=== PATIENT | male | born 1930 | race Caucasian/White ===

== ENCOUNTER 2016-06-18 04:10 | Inpatient (IN) | payer MEDICARE, MEDICAID ==
[2016-06-18] VITALS (7 sets, daily range): BP systolic 138–158; RESP 18–24; TEMP 98.2–98.6; Wt 87.9 kg
[2016-06-18] MEDS ORDERED: DUONEB INH ONE ×3 (04:22→05:13)
[2016-06-18] MEDS ORDERED: METHYLPRED SOD SUCC 125 MG/2 ML VIAL ONE (05:16)
[2016-06-18] MEDS ORDERED: ONDANSETRON 4 MG VIAL ONE (05:42)
[2016-06-18] MEDS ORDERED: MORPHINE 4 MG/ML SYR ONE (05:42)
[2016-06-18] MEDS ORDERED: ACETAMINOPHEN 325 MG TAB PO PRN (06:50)
[2016-06-18] MEDS: DUONEB INH SCH ×3 (06:50→23:30)
[2016-06-18] MEDS ORDERED: ONDANSETRON 4 MG VIAL IV PRN (06:50)
[2016-06-18] MEDS ORDERED: BISACODYL EC 5 MG TAB PO PRN (06:50)
[2016-06-18] MEDS ORDERED: SALINE FLUSH 10 ML FLUSH PRN (06:50)
[2016-06-18] MEDS ORDERED: ALU/MAG/SIM 30 ML UDC PO PRN (06:50)
[2016-06-18] MEDS ORDERED: TEMAZEPAM 7.5 MG CAP PO PRN (06:50)
[2016-06-18] MEDS ORDERED: GUAIFEN/DM 10 ML UDC PO PRN (06:50)
[2016-06-18] MEDS ORDERED: MAG HYDROX 30 ML UDC PO PRN (06:50)
[2016-06-18] MEDS ORDERED: BISACODYL 10 MG SUPP RECTAL PRN (06:50)
[2016-06-18] MEDS ORDERED: CEFTRIAXONE 1 GM VIAL ONE (07:03)
[2016-06-18] MEDS ORDERED: SODIUM CHLORIDE 0.9% 100 ML IV ONE (07:03)
[2016-06-18] MEDS ORDERED: SODIUM CHLORIDE 0.9% 250 ML IV ONE (07:57)
[2016-06-18] MEDS ORDERED: AZITHROMYCIN 500 MG VIAL IV ONE (07:57)
[2016-06-18] MEDS: SALINE FLUSH 10 ML FLUSH SCH ×2 (08:00→19:55)
[2016-06-18] MEDS: ENOXAPARIN 40 MG/0.4 ML SYR SUBQ SCH (10:45)
[2016-06-18] MEDS: GUAIFENESIN ER 600 MG TABCR PO SCH ×2 (10:45→20:18)
[2016-06-18] MEDS: NEB-ALBUTEROL 2.5 MG/3 ML INH PRN (15:05)
[2016-06-18] MEDS: METHYLPRED SOD SUCC 125 MG/2 ML VIAL IV SCH ×2 (17:11→23:29)
[2016-06-19] VITALS (10 sets, daily range): BP systolic 118–156; RESP 20–32; TEMP 97.6–98.3
[2016-06-19] MEDS: NEB-ALBUTEROL 2.5 MG/3 ML INH PRN (04:00)
[2016-06-19] MEDS: SODIUM CHLORIDE 0.9% FLUSH BAG 500 ML IV SCH (05:22)
[2016-06-19] MEDS: DUONEB INH SCH ×3 (07:00→19:11)
[2016-06-19] MEDS ORDERED: MISSING DOSE XX ONE (07:35)
[2016-06-19] MEDS: ENOXAPARIN 40 MG/0.4 ML SYR SUBQ SCH (07:54)
[2016-06-19] MEDS: GUAIFENESIN ER 600 MG TABCR PO SCH ×2 (07:55→20:05)
[2016-06-19] MEDS: SALINE FLUSH 10 ML FLUSH SCH ×2 (07:55→20:05)
[2016-06-19] MEDS: CEFTRIAXONE 1 GM in SODIUM CHLORIDE 0.9% 50 ML IV SCH (07:55)
[2016-06-19] MEDS: METHYLPRED SOD SUCC 125 MG/2 ML VIAL IV SCH (07:55)
[2016-06-19] MEDS ORDERED: AZITHROMYCIN 500 MG in SODIUM CHLORIDE 0.9% 250 ML IV SCH (09:00)
[2016-06-19] MEDS ORDERED: LORAZEPAM 0.5 MG TAB ONE (13:41)
[2016-06-19] MEDS: ISOSORBIDE MONO 30 MG TAB PO SCH (13:43)
[2016-06-19] MEDS: METOPROLOL XL 25 MG TAB PO SCH (13:43)
[2016-06-19] MEDS: Finasteride 5 MG TAB PO SCH (13:43)
[2016-06-19] MEDS: LORAZEPAM 0.5 MG TAB PO PRN ×2 (13:43→20:05)
[2016-06-19] MEDS: PAROXETINE HCL 10 MG TAB PO SCH (13:43)
[2016-06-19] MEDS: TAMSULOSIN 0.4 MG CAP PO SCH (13:43)
[2016-06-19] MEDS: SACCHA BOULARDII 250MG CAP PO SCH ×2 (15:59→20:05)
[2016-06-19] MEDS: METHYLPRED SOD SUCC 40 MG VIAL IV SCH (15:59)
[2016-06-19] MEDS: NEB-BROVANA 15 MCG/2 ML INH SCH (19:11)
[2016-06-19] MEDS: ROFLUMILAST 500 MCG TAB PO SCH (20:05)
[2016-06-19] MEDS: FAMOTIDINE 20 MG TAB PO SCH (20:05)
[2016-06-19] MEDS: BIMATOPROST 0.01% OP SOLN 2.5 ML EYE EACH SCH (20:06)
[2016-06-20] VITALS (9 sets, daily range): BP systolic 112–149; RESP 24–28; TEMP 97.8–98.4
[2016-06-20] MEDS: METHYLPRED SOD SUCC 40 MG VIAL IV SCH ×3 (00:20→16:30)
[2016-06-20] MEDS: DUONEB INH SCH ×5 (00:28→22:14)
[2016-06-20] MEDS: SODIUM CHLORIDE 0.9% FLUSH BAG 500 ML IV SCH (05:32)
[2016-06-20] MEDS: NEB-BROVANA 15 MCG/2 ML INH SCH ×2 (06:42→19:16)
[2016-06-20] MEDS: METOPROLOL XL 25 MG TAB PO SCH (08:51)
[2016-06-20] MEDS: Finasteride 5 MG TAB PO SCH (08:51)
[2016-06-20] MEDS: ASPIRIN EC 81 MG TAB PO SCH (08:51)
[2016-06-20] MEDS: ISOSORBIDE MONO 30 MG TAB PO SCH (08:51)
[2016-06-20] MEDS: SALINE FLUSH 10 ML FLUSH SCH ×2 (08:51→20:05)
[2016-06-20] MEDS: GUAIFENESIN ER 600 MG TABCR PO SCH ×2 (08:51→20:08)
[2016-06-20] MEDS: FAMOTIDINE 20 MG TAB PO SCH ×2 (08:51→20:08)
[2016-06-20] MEDS: SACCHA BOULARDII 250MG CAP PO SCH ×3 (08:51→20:08)
[2016-06-20] MEDS: TAMSULOSIN 0.4 MG CAP PO SCH (08:51)
[2016-06-20] MEDS: PAROXETINE HCL 10 MG TAB PO SCH (08:51)
[2016-06-20] MEDS: ENOXAPARIN 40 MG/0.4 ML SYR SUBQ SCH (08:52)
[2016-06-20] MEDS: CEFTRIAXONE 1 GM in SODIUM CHLORIDE 0.9% 50 ML IV SCH (08:53)
[2016-06-20] MEDS: NEB-ALBUTEROL 2.5 MG/3 ML INH PRN (16:24)
[2016-06-20] MEDS: LORAZEPAM 0.5 MG TAB PO PRN (16:30)
[2016-06-20] MEDS: AZITHROMYCIN 250 MG TAB PO SCH (19:08)
[2016-06-20] MEDS: NEB-NACL 3% 4 ML NEBU INH SCH ×2 (19:16→22:14)
[2016-06-20] MEDS: NEB-BUDESONIDE 0.5 MG INH SCH (19:16)
[2016-06-20] MEDS ORDERED: Furosemide 100 MG/10 ML VIAL IV ONE (19:40)
[2016-06-20] MEDS: OXYMETAZOLINE 0.05% NOSE SPRAY NARE EACH SCH (20:07)
[2016-06-20] MEDS: ROFLUMILAST 500 MCG TAB PO SCH (20:08)
[2016-06-20] MEDS: BIMATOPROST 0.01% OP SOLN 2.5 ML EYE EACH SCH (21:56)
[2016-06-21] MEDS: METHYLPRED SOD SUCC 40 MG VIAL IV SCH ×3 (00:10→16:24)
[2016-06-21] MEDS: NEB-NACL 3% 4 ML NEBU INH SCH ×7 (02:53→23:47)
[2016-06-21] MEDS: DUONEB INH SCH ×6 (02:53→23:47)
[2016-06-21 03:30] VITALS: BP_SYST 137; RESP 24; TEMP 97.6
[2016-06-21] MEDS: SODIUM CHLORIDE 0.9% FLUSH BAG 500 ML IV SCH (06:13)
[2016-06-21] MEDS: NEB-BUDESONIDE 0.5 MG INH SCH ×2 (07:29→18:55)
[2016-06-21] MEDS: NEB-BROVANA 15 MCG/2 ML INH SCH ×2 (07:29→18:55)
[2016-06-21 07:33] VITALS: BP_SYST 153; RESP 24; TEMP 97.6
[2016-06-21] MEDS: SALINE FLUSH 10 ML FLUSH SCH ×2 (08:01→21:09)
[2016-06-21] MEDS: OXYMETAZOLINE 0.05% NOSE SPRAY NARE EACH SCH ×2 (08:02→21:10)
[2016-06-21] MEDS: CEFTRIAXONE 1 GM in SODIUM CHLORIDE 0.9% 50 ML IV SCH (08:02)
[2016-06-21] MEDS: GUAIFENESIN ER 600 MG TABCR PO SCH ×2 (08:03→21:09)
[2016-06-21] MEDS: ENOXAPARIN 40 MG/0.4 ML SYR SUBQ SCH (08:03)
[2016-06-21] MEDS: Finasteride 5 MG TAB PO SCH (08:03)
[2016-06-21] MEDS: ASPIRIN EC 81 MG TAB PO SCH (08:03)
[2016-06-21] MEDS: FAMOTIDINE 20 MG TAB PO SCH ×2 (08:03→21:09)
[2016-06-21] MEDS: METOPROLOL XL 25 MG TAB PO SCH (08:03)
[2016-06-21] MEDS: TAMSULOSIN 0.4 MG CAP PO SCH (08:04)
[2016-06-21] MEDS: AZITHROMYCIN 250 MG TAB PO SCH (08:04)
[2016-06-21] MEDS: SACCHA BOULARDII 250MG CAP PO SCH ×3 (08:04→21:09)
[2016-06-21] MEDS: PAROXETINE HCL 10 MG TAB PO SCH (08:26)
[2016-06-21] MEDS: ISOSORBIDE MONO 30 MG TAB PO SCH (08:26)
[2016-06-21] MEDS ORDERED: Furosemide 100 MG/10 ML VIAL IV ONE (10:00)
[2016-06-21] MEDS ORDERED: Furosemide 40 MG/4 ML VIAL ONE (10:03)
[2016-06-21] MEDS: LORAZEPAM 0.5 MG TAB PO PRN ×2 (10:06→16:44)
[2016-06-21 11:15] VITALS: RESP 24
[2016-06-21 11:45] VITALS: BP_SYST 148; RESP 24; TEMP 97.6
[2016-06-21] MEDS: NEB-ALBUTEROL 2.5 MG/3 ML INH PRN (11:58)
[2016-06-21] MEDS: TUSSIONEX SUSP UDC PO SCH ×2 (15:24→21:09)
[2016-06-21] MEDS: BENZONATATE 100 MG CAP PO SCH ×2 (17:20→21:09)
[2016-06-21 20:26] VITALS: BP_SYST 123; RESP 28; TEMP 98.3
[2016-06-21] MEDS: ROFLUMILAST 500 MCG TAB PO SCH (21:09)
[2016-06-21] MEDS: BIMATOPROST 0.01% OP SOLN 2.5 ML EYE EACH SCH (21:16)
[2016-06-21 23:43] VITALS: BP_SYST 112; RESP 24; TEMP 98.4
[2016-06-22] MEDS: METHYLPRED SOD SUCC 40 MG VIAL IV SCH ×4 (00:30→23:07)
[2016-06-22] MEDS: DUONEB INH SCH ×6 (02:46→22:33)
[2016-06-22] MEDS: NEB-NACL 3% 4 ML NEBU INH SCH ×7 (02:46→22:33)
[2016-06-22 03:30] VITALS: BP_SYST 117; RESP 22; TEMP 98.4
[2016-06-22] MEDS: SODIUM CHLORIDE 0.9% FLUSH BAG 500 ML IV SCH (06:33)
[2016-06-22] MEDS: NEB-BROVANA 15 MCG/2 ML INH SCH ×2 (06:53→16:40)
[2016-06-22] MEDS: NEB-BUDESONIDE 0.5 MG INH SCH ×2 (06:53→16:40)
[2016-06-22 08:07] VITALS: BP_SYST 131; RESP 20; TEMP 98.1
[2016-06-22] MEDS: OXYMETAZOLINE 0.05% NOSE SPRAY NARE EACH SCH ×2 (08:45→20:40)
[2016-06-22] MEDS: ENOXAPARIN 40 MG/0.4 ML SYR SUBQ SCH (08:45)
[2016-06-22] MEDS: SALINE FLUSH 10 ML FLUSH SCH ×2 (08:45→20:41)
[2016-06-22] MEDS: TAMSULOSIN 0.4 MG CAP PO SCH (08:46)
[2016-06-22] MEDS: Finasteride 5 MG TAB PO SCH (08:46)
[2016-06-22] MEDS: BENZONATATE 100 MG CAP PO SCH ×3 (08:46→20:41)
[2016-06-22] MEDS: PAROXETINE HCL 10 MG TAB PO SCH (08:46)
[2016-06-22] MEDS: ASPIRIN EC 81 MG TAB PO SCH (08:46)
[2016-06-22] MEDS: AZITHROMYCIN 250 MG TAB PO SCH (08:46)
[2016-06-22] MEDS: METOPROLOL XL 25 MG TAB PO SCH (08:46)
[2016-06-22] MEDS: ISOSORBIDE MONO 30 MG TAB PO SCH (08:47)
[2016-06-22] MEDS: GUAIFENESIN ER 600 MG TABCR PO SCH ×2 (08:47→20:41)
[2016-06-22] MEDS: SACCHA BOULARDII 250MG CAP PO SCH ×3 (08:47→20:41)
[2016-06-22] MEDS: CEFTRIAXONE 1 GM in SODIUM CHLORIDE 0.9% 50 ML IV SCH (08:55)
[2016-06-22] MEDS: FAMOTIDINE 20 MG TAB PO SCH ×2 (08:55→20:41)
[2016-06-22] MEDS: TUSSIONEX SUSP UDC PO SCH ×2 (08:57→20:40)
[2016-06-22 12:15] VITALS: BP_SYST 107; RESP 20; TEMP 98.1
[2016-06-22 15:25] VITALS: BP_SYST 124; RESP 20; TEMP 97.6
[2016-06-22 19:27] VITALS: BP_SYST 153; RESP 20; TEMP 97.4
[2016-06-22] MEDS: BIMATOPROST 0.01% OP SOLN 2.5 ML EYE EACH SCH (20:40)
[2016-06-22] MEDS: ROFLUMILAST 500 MCG TAB PO SCH (20:41)
[2016-06-22 23:48] VITALS: BP_SYST 128; RESP 20; TEMP 98.1
[2016-06-23] MEDS: NEB-NACL 3% 4 ML NEBU INH SCH ×6 (02:43→22:46)
[2016-06-23] MEDS: DUONEB INH SCH ×6 (02:43→22:46)
[2016-06-23 04:04] VITALS: BP_SYST 128; RESP 20; TEMP 98
[2016-06-23] MEDS: SODIUM CHLORIDE 0.9% FLUSH BAG 500 ML IV SCH (05:19)
[2016-06-23] MEDS: NEB-BROVANA 15 MCG/2 ML INH SCH ×2 (05:20→18:58)
[2016-06-23] MEDS: NEB-BUDESONIDE 0.5 MG INH SCH ×2 (05:21→18:58)
[2016-06-23 07:18] VITALS: BP_SYST 151; RESP 20; TEMP 98.1
[2016-06-23] MEDS: SALINE FLUSH 10 ML FLUSH SCH ×2 (08:00→21:09)
[2016-06-23] MEDS: OXYMETAZOLINE 0.05% NOSE SPRAY NARE EACH SCH (08:42)
[2016-06-23] MEDS: METHYLPRED SOD SUCC 40 MG VIAL IV SCH ×3 (08:44→23:57)
[2016-06-23] MEDS: TUSSIONEX SUSP UDC PO SCH ×2 (08:45→21:09)
[2016-06-23] MEDS: CEFTRIAXONE 1 GM in SODIUM CHLORIDE 0.9% 50 ML IV SCH (08:46)
[2016-06-23] MEDS: FAMOTIDINE 20 MG TAB PO SCH ×2 (08:48→21:09)
[2016-06-23] MEDS: BENZONATATE 100 MG CAP PO SCH ×3 (08:48→21:09)
[2016-06-23] MEDS: PAROXETINE HCL 10 MG TAB PO SCH (08:48)
[2016-06-23] MEDS: SACCHA BOULARDII 250MG CAP PO SCH ×3 (08:48→21:10)
[2016-06-23] MEDS: GUAIFENESIN ER 600 MG TABCR PO SCH ×2 (08:48→21:10)
[2016-06-23] MEDS: METOPROLOL XL 25 MG TAB PO SCH (08:48)
[2016-06-23] MEDS: ISOSORBIDE MONO 30 MG TAB PO SCH (08:48)
[2016-06-23] MEDS: TAMSULOSIN 0.4 MG CAP PO SCH (08:48)
[2016-06-23] MEDS: ASPIRIN EC 81 MG TAB PO SCH (08:48)
[2016-06-23] MEDS: AZITHROMYCIN 250 MG TAB PO SCH (08:48)
[2016-06-23] MEDS: Finasteride 5 MG TAB PO SCH (08:48)
[2016-06-23] MEDS: ENOXAPARIN 40 MG/0.4 ML SYR SUBQ SCH (08:50)
[2016-06-23 11:53] VITALS: BP_SYST 130; RESP 22; TEMP 98.4
[2016-06-23 16:20] VITALS: BP_SYST 157; RESP 22; TEMP 98.1
[2016-06-23 19:40] VITALS: BP_SYST 129; RESP 20; TEMP 98.5
[2016-06-23] MEDS: ROFLUMILAST 500 MCG TAB PO SCH (21:09)
[2016-06-23] MEDS: BIMATOPROST 0.01% OP SOLN 2.5 ML EYE EACH SCH (21:09)
[2016-06-23 22:57] VITALS: BP_SYST 156; RESP 22
[2016-06-24] MEDS: DUONEB INH SCH ×6 (02:38→22:40)
[2016-06-24] MEDS: NEB-NACL 3% 4 ML NEBU INH SCH ×6 (03:00→22:40)
[2016-06-24 05:05] VITALS: BP_SYST 188; RESP 24
[2016-06-24] MEDS: SODIUM CHLORIDE 0.9% FLUSH BAG 500 ML IV SCH (06:01)
[2016-06-24 07:23] VITALS: BP_SYST 179; RESP 24; TEMP 97.6
[2016-06-24] MEDS: NEB-BUDESONIDE 0.5 MG INH SCH ×2 (07:37→18:39)
[2016-06-24] MEDS: NEB-BROVANA 15 MCG/2 ML INH SCH ×2 (07:37→18:39)
[2016-06-24] MEDS: METHYLPRED SOD SUCC 40 MG VIAL IV SCH (08:57)
[2016-06-24] MEDS: SALINE FLUSH 10 ML FLUSH SCH ×2 (08:57→20:10)
[2016-06-24] MEDS: ENOXAPARIN 40 MG/0.4 ML SYR SUBQ SCH (08:59)
[2016-06-24] MEDS: TUSSIONEX SUSP UDC PO SCH ×2 (09:00→20:10)
[2016-06-24] MEDS: CEFTRIAXONE 1 GM in SODIUM CHLORIDE 0.9% 50 ML IV SCH (09:00)
[2016-06-24] MEDS: ASPIRIN EC 81 MG TAB PO SCH (09:00)
[2016-06-24] MEDS: METOPROLOL XL 25 MG TAB PO SCH (09:01)
[2016-06-24] MEDS: Finasteride 5 MG TAB PO SCH (09:01)
[2016-06-24] MEDS: FAMOTIDINE 20 MG TAB PO SCH ×2 (09:01→20:10)
[2016-06-24] MEDS: AZITHROMYCIN 250 MG TAB PO SCH (09:01)
[2016-06-24] MEDS: PAROXETINE HCL 10 MG TAB PO SCH (09:01)
[2016-06-24] MEDS: GUAIFENESIN ER 600 MG TABCR PO SCH ×2 (09:01→20:10)
[2016-06-24] MEDS: BENZONATATE 100 MG CAP PO SCH ×3 (09:01→20:10)
[2016-06-24] MEDS: SACCHA BOULARDII 250MG CAP PO SCH ×3 (09:01→20:10)
[2016-06-24] MEDS: TAMSULOSIN 0.4 MG CAP PO SCH (09:01)
[2016-06-24] MEDS: ISOSORBIDE MONO 30 MG TAB PO SCH (09:01)
[2016-06-24 11:04] VITALS: BP_SYST 133; TEMP 98.1
[2016-06-24] MEDS: PREDNISONE 20 MG TAB PO SCH ×2 (12:25→17:34)
[2016-06-24 15:43] VITALS: BP_SYST 131; RESP 20; TEMP 98.4
[2016-06-24] MEDS: Amoxicillin Tr 500 MG CAP PO SCH ×2 (17:34→20:10)
[2016-06-24 19:29] VITALS: BP_SYST 149; RESP 20; TEMP 97.5
[2016-06-24] MEDS: ROFLUMILAST 500 MCG TAB PO SCH (20:10)
[2016-06-24] MEDS: BIMATOPROST 0.01% OP SOLN 2.5 ML EYE EACH SCH (20:10)
[2016-06-24 23:09] VITALS: BP_SYST 146; RESP 18; TEMP 98.1
[2016-06-25] MEDS: NEB-NACL 3% 4 ML NEBU INH SCH ×6 (02:50→22:58)
[2016-06-25] MEDS: DUONEB INH SCH ×6 (02:51→22:58)
[2016-06-25 03:05] VITALS: BP_SYST 165; RESP 20; TEMP 97.6
[2016-06-25] MEDS: NEB-BROVANA 15 MCG/2 ML INH SCH ×2 (05:18→17:17)
[2016-06-25] MEDS: NEB-BUDESONIDE 0.5 MG INH SCH ×2 (05:18→17:18)
[2016-06-25] MEDS: SODIUM CHLORIDE 0.9% FLUSH BAG 500 ML IV SCH (05:26)
[2016-06-25 07:12] VITALS: BP_SYST 142; RESP 20; TEMP 97.6
[2016-06-25] MEDS: TUSSIONEX SUSP UDC PO SCH ×2 (08:57→19:58)
[2016-06-25] MEDS: BENZONATATE 100 MG CAP PO SCH ×3 (08:58→19:57)
[2016-06-25] MEDS: AZITHROMYCIN 250 MG TAB PO SCH (08:58)
[2016-06-25] MEDS: FAMOTIDINE 20 MG TAB PO SCH ×2 (08:58→19:58)
[2016-06-25] MEDS: ASPIRIN EC 81 MG TAB PO SCH (08:58)
[2016-06-25] MEDS: SACCHA BOULARDII 250MG CAP PO SCH ×3 (08:58→19:57)
[2016-06-25] MEDS: Amoxicillin Tr 500 MG CAP PO SCH ×3 (08:58→19:58)
[2016-06-25] MEDS: TAMSULOSIN 0.4 MG CAP PO SCH (08:58)
[2016-06-25] MEDS: Finasteride 5 MG TAB PO SCH (08:58)
[2016-06-25] MEDS: PAROXETINE HCL 10 MG TAB PO SCH (08:58)
[2016-06-25] MEDS: PREDNISONE 20 MG TAB PO SCH ×2 (08:58→12:11)
[2016-06-25] MEDS: METOPROLOL XL 25 MG TAB PO SCH (08:58)
[2016-06-25] MEDS: GUAIFENESIN ER 600 MG TABCR PO SCH ×2 (08:58→19:57)
[2016-06-25] MEDS: SALINE FLUSH 10 ML FLUSH SCH ×2 (08:59→19:57)
[2016-06-25] MEDS: ISOSORBIDE MONO 30 MG TAB PO SCH (08:59)
[2016-06-25] MEDS: ENOXAPARIN 40 MG/0.4 ML SYR SUBQ SCH (08:59)
[2016-06-25 11:13] VITALS: BP_SYST 146; RESP 18; TEMP 97.2
[2016-06-25 15:20] VITALS: BP_SYST 136; RESP 18; TEMP 98
[2016-06-25] MEDS ORDERED: PREDNISONE 20 MG TAB PO SCH (17:00)
[2016-06-25 19:25] VITALS: BP_SYST 148; RESP 16; TEMP 98.8
[2016-06-25] MEDS ORDERED: MISSING DOSE XX ONE (19:55)
[2016-06-25] MEDS: ROFLUMILAST 500 MCG TAB PO SCH (19:58)
[2016-06-25] MEDS: BIMATOPROST 0.01% OP SOLN 2.5 ML EYE EACH SCH (21:23)
[2016-06-25 23:32] VITALS: BP_SYST 163; RESP 16; TEMP 98.8
[2016-06-26] MEDS: NEB-NACL 3% 4 ML NEBU INH SCH ×6 (02:58→23:55)
[2016-06-26] MEDS: DUONEB INH SCH ×6 (02:58→23:54)
[2016-06-26 03:50] VITALS: BP_SYST 169; RESP 18; TEMP 98.4
[2016-06-26] MEDS: NEB-BROVANA 15 MCG/2 ML INH SCH ×2 (05:25→18:51)
[2016-06-26] MEDS: NEB-BUDESONIDE 0.5 MG INH SCH ×2 (05:25→18:51)
[2016-06-26] MEDS: SODIUM CHLORIDE 0.9% FLUSH BAG 500 ML IV SCH (05:50)
[2016-06-26 07:14] VITALS: BP_SYST 124; RESP 16; TEMP 98.3
[2016-06-26] MEDS: SALINE FLUSH 10 ML FLUSH SCH ×2 (08:36→21:32)
[2016-06-26] MEDS: Amoxicillin Tr 500 MG CAP PO SCH ×3 (08:36→21:28)
[2016-06-26] MEDS: FAMOTIDINE 20 MG TAB PO SCH ×2 (08:37→21:28)
[2016-06-26] MEDS: PAROXETINE HCL 10 MG TAB PO SCH (08:37)
[2016-06-26] MEDS: BENZONATATE 100 MG CAP PO SCH ×3 (08:37→21:28)
[2016-06-26] MEDS: GUAIFENESIN ER 600 MG TABCR PO SCH ×2 (08:37→21:29)
[2016-06-26] MEDS: ASPIRIN EC 81 MG TAB PO SCH (08:37)
[2016-06-26] MEDS: SACCHA BOULARDII 250MG CAP PO SCH ×3 (08:37→21:28)
[2016-06-26] MEDS: Finasteride 5 MG TAB PO SCH (08:37)
[2016-06-26] MEDS: METOPROLOL XL 25 MG TAB PO SCH (08:37)
[2016-06-26] MEDS: TAMSULOSIN 0.4 MG CAP PO SCH (08:37)
[2016-06-26] MEDS: ISOSORBIDE MONO 30 MG TAB PO SCH (08:37)
[2016-06-26] MEDS: TUSSIONEX SUSP UDC PO SCH ×2 (08:38→21:31)
[2016-06-26] MEDS: ENOXAPARIN 40 MG/0.4 ML SYR SUBQ SCH (08:38)
[2016-06-26] MEDS: PREDNISONE 50 MG TAB PO SCH (08:44)
[2016-06-26 11:01] VITALS: BP_SYST 158; RESP 16; TEMP 98.1
[2016-06-26 15:23] VITALS: BP_SYST 147; RESP 22; TEMP 97.5
[2016-06-26] MEDS ORDERED: MISSING DOSE XX ONE ×2 (16:40→20:55)
[2016-06-26 19:37] VITALS: BP_SYST 147; RESP 20; TEMP 98.1
[2016-06-26] MEDS: BIMATOPROST 0.01% OP SOLN 2.5 ML EYE EACH SCH (21:28)
[2016-06-26] MEDS: ROFLUMILAST 500 MCG TAB PO SCH (21:29)
[2016-06-26 23:18] VITALS: BP_SYST 147; RESP 20; TEMP 97.9
[2016-06-27] VITALS (8 sets, daily range): BP systolic 119–162; RESP 16–26; TEMP 98.2–98.7
[2016-06-27] MEDS: DUONEB INH SCH ×6 (03:21→23:50)
[2016-06-27] MEDS: NEB-NACL 3% 4 ML NEBU INH SCH ×6 (03:21→23:50)
[2016-06-27] MEDS: SODIUM CHLORIDE 0.9% FLUSH BAG 500 ML IV SCH (06:00)
[2016-06-27] MEDS: NEB-BUDESONIDE 0.5 MG INH SCH ×2 (06:48→19:53)
[2016-06-27] MEDS: NEB-BROVANA 15 MCG/2 ML INH SCH ×2 (06:48→19:52)
[2016-06-27] MEDS: SALINE FLUSH 10 ML FLUSH SCH ×2 (08:58→20:29)
[2016-06-27] MEDS: TUSSIONEX SUSP UDC PO SCH ×2 (08:58→20:28)
[2016-06-27] MEDS: FAMOTIDINE 20 MG TAB PO SCH ×2 (08:59→20:29)
[2016-06-27] MEDS: Amoxicillin Tr 500 MG CAP PO SCH ×3 (08:59→20:29)
[2016-06-27] MEDS: GUAIFENESIN ER 600 MG TABCR PO SCH ×2 (08:59→20:29)
[2016-06-27] MEDS: BENZONATATE 100 MG CAP PO SCH ×3 (08:59→20:29)
[2016-06-27] MEDS: SACCHA BOULARDII 250MG CAP PO SCH ×3 (08:59→20:29)
[2016-06-27] MEDS ORDERED: MISSING DOSE XX ONE (09:10)
[2016-06-27] MEDS: ASPIRIN EC 81 MG TAB PO SCH (09:32)
[2016-06-27] MEDS: PREDNISONE 50 MG TAB PO SCH (09:32)
[2016-06-27] MEDS: METOPROLOL XL 25 MG TAB PO SCH (09:32)
[2016-06-27] MEDS: PAROXETINE HCL 10 MG TAB PO SCH (09:32)
[2016-06-27] MEDS: TAMSULOSIN 0.4 MG CAP PO SCH (09:32)
[2016-06-27] MEDS: ISOSORBIDE MONO 30 MG TAB PO SCH (09:32)
[2016-06-27] MEDS: Finasteride 5 MG TAB PO SCH (09:32)
[2016-06-27] MEDS: ENOXAPARIN 40 MG/0.4 ML SYR SUBQ SCH (09:32)
[2016-06-27] MEDS: BIMATOPROST 0.01% OP SOLN 2.5 ML EYE EACH SCH (20:28)
[2016-06-27] MEDS: ROFLUMILAST 500 MCG TAB PO SCH (20:29)
[2016-06-28] MEDS: SODIUM CHLORIDE 0.9% FLUSH BAG 500 ML IV SCH (01:39)
[2016-06-28] MEDS: DUONEB INH SCH ×6 (02:42→23:51)
[2016-06-28] MEDS: NEB-NACL 3% 4 ML NEBU INH SCH ×6 (02:42→23:51)
[2016-06-28 03:00] VITALS: BP_SYST 153; RESP 20; TEMP 98.2
[2016-06-28 03:01] VITALS: RESP 20
[2016-06-28] MEDS: NEB-BROVANA 15 MCG/2 ML INH SCH ×2 (06:34→17:03)
[2016-06-28] MEDS: NEB-BUDESONIDE 0.5 MG INH SCH ×2 (06:34→17:03)
[2016-06-28 07:19] VITALS: BP_SYST 149; RESP 18; TEMP 98.6
[2016-06-28] MEDS: Finasteride 5 MG TAB PO SCH (08:16)
[2016-06-28] MEDS: BENZONATATE 100 MG CAP PO SCH ×3 (08:16→20:22)
[2016-06-28] MEDS: ENOXAPARIN 40 MG/0.4 ML SYR SUBQ SCH (08:16)
[2016-06-28] MEDS: TUSSIONEX SUSP UDC PO SCH ×2 (08:16→20:25)
[2016-06-28] MEDS: SALINE FLUSH 10 ML FLUSH SCH ×2 (08:16→20:23)
[2016-06-28] MEDS: FAMOTIDINE 20 MG TAB PO SCH ×2 (08:17→20:25)
[2016-06-28] MEDS: PREDNISONE 50 MG TAB PO SCH (08:17)
[2016-06-28] MEDS: METOPROLOL XL 25 MG TAB PO SCH (08:17)
[2016-06-28] MEDS: ISOSORBIDE MONO 30 MG TAB PO SCH (08:18)
[2016-06-28] MEDS: SACCHA BOULARDII 250MG CAP PO SCH ×3 (08:18→20:22)
[2016-06-28] MEDS: TAMSULOSIN 0.4 MG CAP PO SCH (08:18)
[2016-06-28] MEDS: PAROXETINE HCL 10 MG TAB PO SCH (08:18)
[2016-06-28] MEDS: GUAIFENESIN ER 600 MG TABCR PO SCH ×2 (08:18→20:22)
[2016-06-28] MEDS: ASPIRIN EC 81 MG TAB PO SCH (08:18)
[2016-06-28] MEDS: Amoxicillin Tr 500 MG CAP PO SCH ×3 (08:18→20:22)
[2016-06-28 11:23] VITALS: BP_SYST 129; RESP 18; TEMP 98.6
[2016-06-28 15:01] VITALS: BP_SYST 122; RESP 18; TEMP 98.6
[2016-06-28 19:56] VITALS: BP_SYST 116; RESP 18; TEMP 98.6
[2016-06-28] MEDS ORDERED: MISSING DOSE XX ONE (20:20)
[2016-06-28] MEDS: BIMATOPROST 0.01% OP SOLN 2.5 ML EYE EACH SCH (20:22)
[2016-06-28] MEDS: ROFLUMILAST 500 MCG TAB PO SCH (20:22)
[2016-06-29] VITALS (11 sets, daily range): BP systolic 104–160; RESP 16–20; TEMP 98–98.7
[2016-06-29] MEDS: NEB-NACL 3% 4 ML NEBU INH SCH ×6 (02:56→23:02)
[2016-06-29] MEDS: DUONEB INH SCH ×6 (02:58→23:01)
[2016-06-29] MEDS: SODIUM CHLORIDE 0.9% FLUSH BAG 500 ML IV SCH (04:45)
[2016-06-29] MEDS: NEB-BUDESONIDE 0.5 MG INH SCH ×2 (06:50→19:54)
[2016-06-29] MEDS: NEB-BROVANA 15 MCG/2 ML INH SCH ×2 (06:50→19:54)
[2016-06-29] MEDS: GUAIFENESIN ER 600 MG TABCR PO SCH ×2 (09:45→20:27)
[2016-06-29] MEDS: SALINE FLUSH 10 ML FLUSH SCH ×2 (09:45→20:25)
[2016-06-29] MEDS: ISOSORBIDE MONO 30 MG TAB PO SCH (09:45)
[2016-06-29] MEDS: TUSSIONEX SUSP UDC PO SCH ×2 (09:45→20:29)
[2016-06-29] MEDS: BENZONATATE 100 MG CAP PO SCH ×3 (09:46→20:26)
[2016-06-29] MEDS: PAROXETINE HCL 10 MG TAB PO SCH (09:46)
[2016-06-29] MEDS: METOPROLOL XL 25 MG TAB PO SCH (09:47)
[2016-06-29] MEDS: ENOXAPARIN 40 MG/0.4 ML SYR SUBQ SCH (09:47)
[2016-06-29] MEDS: ASPIRIN EC 81 MG TAB PO SCH (09:47)
[2016-06-29] MEDS: PREDNISONE 50 MG TAB PO SCH (09:47)
[2016-06-29] MEDS: Amoxicillin Tr 500 MG CAP PO SCH ×3 (09:47→20:26)
[2016-06-29] MEDS: Finasteride 5 MG TAB PO SCH (09:47)
[2016-06-29] MEDS: SACCHA BOULARDII 250MG CAP PO SCH ×3 (09:47→20:26)
[2016-06-29] MEDS: TAMSULOSIN 0.4 MG CAP PO SCH (09:47)
[2016-06-29] MEDS: FAMOTIDINE 20 MG TAB PO SCH ×2 (09:47→20:26)
[2016-06-29] MEDS: BIMATOPROST 0.01% OP SOLN 2.5 ML EYE EACH SCH (20:25)
[2016-06-29] MEDS: ROFLUMILAST 500 MCG TAB PO SCH (20:25)
[2016-06-30] MEDS: DUONEB INH SCH ×5 (02:20→19:58)
[2016-06-30] MEDS: NEB-NACL 3% 4 ML NEBU INH SCH ×5 (02:20→19:58)
[2016-06-30 02:59] VITALS: BP_SYST 133; RESP 20; TEMP 97.8
[2016-06-30] MEDS: SODIUM CHLORIDE 0.9% FLUSH BAG 500 ML IV SCH (05:12)
[2016-06-30] MEDS: NEB-BUDESONIDE 0.5 MG INH SCH ×2 (06:16→19:58)
[2016-06-30] MEDS: NEB-BROVANA 15 MCG/2 ML INH SCH ×2 (06:16→19:58)
[2016-06-30 07:01] VITALS: BP_SYST 182; RESP 20; TEMP 98.4
[2016-06-30] MEDS: TUSSIONEX SUSP UDC PO SCH (09:31)
[2016-06-30] MEDS: ENOXAPARIN 40 MG/0.4 ML SYR SUBQ SCH (09:31)
[2016-06-30] MEDS: SACCHA BOULARDII 250MG CAP PO SCH ×2 (09:31→15:58)
[2016-06-30] MEDS: PREDNISONE 50 MG TAB PO SCH (09:31)
[2016-06-30] MEDS: METOPROLOL XL 25 MG TAB PO SCH (09:31)
[2016-06-30] MEDS: Amoxicillin Tr 500 MG CAP PO SCH ×3 (09:32→19:07)
[2016-06-30] MEDS: BENZONATATE 100 MG CAP PO SCH ×2 (09:32→15:58)
[2016-06-30] MEDS: FAMOTIDINE 20 MG TAB PO SCH (09:32)
[2016-06-30] MEDS: TAMSULOSIN 0.4 MG CAP PO SCH (09:32)
[2016-06-30] MEDS: ISOSORBIDE MONO 30 MG TAB PO SCH (09:32)
[2016-06-30] MEDS: GUAIFENESIN ER 600 MG TABCR PO SCH (09:32)
[2016-06-30] MEDS: PAROXETINE HCL 10 MG TAB PO SCH (09:32)
[2016-06-30] MEDS: ASPIRIN EC 81 MG TAB PO SCH (09:32)
[2016-06-30] MEDS: Finasteride 5 MG TAB PO SCH (09:32)
[2016-06-30] MEDS: SALINE FLUSH 10 ML FLUSH SCH (09:40)
[2016-06-30 11:30] VITALS: BP_SYST 129; RESP 20; TEMP 97.5
[2016-06-30 15:30] VITALS: BP_SYST 152; RESP 20; TEMP 98.1
== END 2016-06-30 19:10 | disposition home health service (06) | DRG 190 ==
LOC: ENRESERVDT → ENRESERVTM → ER 04:10 → EMR 06:46 → ENPENDDIS 06:46 → PCU2 09:23 → 3NT 06-29 16:44
PROVIDERS: ADMIT Internal Medicine; ATTEND Internal Medicine
DX: J44.0 Chronic obstructive pulmonary disease with (acute) lower respiratory infection (principal); J96.22 Acute and chronic respiratory failure with hypercapnia; J96.21 Acute and chronic respiratory failure with hypoxia; J15.9 Unspecified bacterial pneumonia; I50.30 Unspecified diastolic (congestive) heart failure; C61 Malignant neoplasm of prostate; J44.1 Chronic obstructive pulmonary disease with (acute) exacerbation; I10 Essential (primary) hypertension; F41.9 Anxiety disorder, unspecified; K21.9 Gastro-esophageal reflux disease without esophagitis; N40.0 Benign prostatic hyperplasia without lower urinary tract symptoms; E55.9 Vitamin D deficiency, unspecified; Z66 Do not resuscitate; F17.211 Nicotine dependence, cigarettes, in remission; Z79.51 Long term (current) use of inhaled steroids; Z79.82 Long term (current) use of aspirin
CPT/HCPCS: 36600; 71010; 71250; 80048; 82803; 83735; 85025; 87071; 93005; 94640; 94660; 94667; 94668; 94762; 94799; 96365; 96367; 96368; 96375; 99223; 99232; 99233; 99239

== ENCOUNTER 2016-07-25 18:53 | Inpatient (IN) | payer MEDICARE, MEDICAID ==
[~2016-07-25] VITALS: Ht 170.2 cm; Wt 86.6 kg
[2016-07-25] MEDS ORDERED: METHYLPRED SOD SUCC 125 MG/2 ML VIAL ONE (22:12)
[2016-07-25] MEDS ORDERED: DUONEB INH ONE ×3 (22:15)
[2016-07-26] VITALS (7 sets, daily range): BP systolic 122–151; RESP 18–22; TEMP 97.3–98.2; Ht 170.2 cm; Wt 86.6 kg
[2016-07-26] MEDS ORDERED: ED METRONIDAZOLE IV 100 ML IV ONE (02:22)
[2016-07-26] MEDS ORDERED: ONDANSETRON 4 MG VIAL IV PRN (04:30)
[2016-07-26] MEDS ORDERED: SALINE FLUSH 10 ML FLUSH PRN (04:30)
[2016-07-26] MEDS ORDERED: ACETAMINOPHEN 325 MG TAB PO PRN (04:30)
[2016-07-26] MEDS ORDERED: BISACODYL EC 5 MG TAB PO PRN (04:30)
[2016-07-26] MEDS ORDERED: DUONEB INH SCH (04:30)
[2016-07-26] MEDS ORDERED: MAG HYDROX 30 ML UDC PO PRN (04:30)
[2016-07-26] MEDS ORDERED: ALU/MAG/SIM 30 ML UDC PO PRN (04:30)
[2016-07-26] MEDS ORDERED: BISACODYL 10 MG SUPP RECTAL PRN (04:30)
[2016-07-26] MEDS ORDERED: METRONIDAZOLE 500MG/100ML 100 ML IV SCH (06:00)
[2016-07-26] MEDS: SODIUM CHLORIDE 0.9% FLUSH BAG 500 ML IV SCH (07:57)
[2016-07-26] MEDS: SALINE FLUSH 10 ML FLUSH SCH ×2 (07:57→21:25)
[2016-07-26] MEDS: LEVOFLOXACIN 750 MG/150 ML 150 ML IV SCH (08:13)
[2016-07-26] MEDS: DUONEB INH SCH ×3 (12:00→18:59)
[2016-07-26] MEDS: PAROXETINE HCL 10 MG TAB PO SCH (12:37)
[2016-07-26] MEDS: Finasteride 5 MG TAB PO SCH (12:37)
[2016-07-26] MEDS: ASPIRIN EC 81 MG TAB PO SCH (12:37)
[2016-07-26] MEDS: VANCOMYCIN SUSP 250 MG/5 ML UDC PO SCH ×3 (12:38→21:24)
[2016-07-26] MEDS ORDERED: CIPROFLOXACIN HCL EYE EACH SCH (21:00)
[2016-07-26] MEDS: SACCHA BOULARDII 250MG CAP PO SCH (21:24)
[2016-07-26] MEDS: FAMOTIDINE 20 MG TAB PO SCH (21:24)
[2016-07-26] MEDS: BIMATOPROST 0.01% OP SOLN 2.5 ML EYE EACH SCH (21:25)
[2016-07-27 04:02] VITALS: BP_SYST 130; RESP 20; TEMP 96.4
[2016-07-27] MEDS: DUONEB INH SCH ×5 (06:11→22:41)
[2016-07-27] MEDS: SODIUM CHLORIDE 0.9% FLUSH BAG 500 ML IV SCH (06:23)
[2016-07-27 07:55] VITALS: BP_SYST 142; RESP 24; TEMP 97.3
[2016-07-27] MEDS: SALINE FLUSH 10 ML FLUSH SCH ×2 (09:56→20:55)
[2016-07-27] MEDS: Finasteride 5 MG TAB PO SCH (09:57)
[2016-07-27] MEDS: VANCOMYCIN SUSP 250 MG/5 ML UDC PO SCH ×4 (09:57→20:55)
[2016-07-27] MEDS: PAROXETINE HCL 10 MG TAB PO SCH (09:57)
[2016-07-27] MEDS: ISOSORBIDE MONO 30 MG TAB PO SCH (09:57)
[2016-07-27] MEDS: SACCHA BOULARDII 250MG CAP PO SCH ×2 (09:57→20:55)
[2016-07-27] MEDS: LEVOFLOXACIN 750 MG/150 ML 150 ML IV SCH (09:57)
[2016-07-27] MEDS: ASPIRIN EC 81 MG TAB PO SCH (09:58)
[2016-07-27] MEDS: TAMSULOSIN 0.4 MG CAP PO SCH (09:58)
[2016-07-27] MEDS ORDERED: ERGOCALCIFEROL 50,000 UNITS (1.25 MG) CAP PO SCH (11:50)
[2016-07-27] MEDS: METOPROLOL XL 25 MG TAB PO SCH (12:08)
[2016-07-27 12:50] VITALS: BP_SYST 110; RESP 18; TEMP 98.7
[2016-07-27] MEDS ORDERED: *PINK BRACELET XX ONE (15:25)
[2016-07-27] MEDS: CIPROFLOXACIN HCL EYE EACH SCH ×2 (15:27→20:56)
[2016-07-27 15:30] VITALS: BP_SYST 98; RESP 12; TEMP 97.5
[2016-07-27] MEDS: NEB-BROVANA 15 MCG/2 ML INH SCH (18:51)
[2016-07-27] MEDS: NEB-BUDESONIDE 0.5 MG INH SCH (18:51)
[2016-07-27] MEDS: *HOME MEDS IN MED CART XX SCH (20:00)
[2016-07-27 20:14] VITALS: BP_SYST 120; RESP 18; TEMP 97.9
[2016-07-27] MEDS: FAMOTIDINE 20 MG TAB PO SCH (20:55)
[2016-07-27] MEDS: BIMATOPROST 0.01% OP SOLN 2.5 ML EYE EACH SCH (20:56)
[2016-07-27] MEDS: ROFLUMILAST 500 MCG TAB PO SCH (20:56)
[2016-07-27 23:05] VITALS: BP_SYST 108; RESP 20; TEMP 97.1
[2016-07-28] VITALS (8 sets, daily range): BP systolic 110–140; RESP 20–24; TEMP 95.4–97.6
[2016-07-28] MEDS: SODIUM CHLORIDE 0.9% FLUSH BAG 500 ML IV SCH (06:37)
[2016-07-28] MEDS: DUONEB INH SCH ×5 (07:00→22:28)
[2016-07-28] MEDS: NEB-BUDESONIDE 0.5 MG INH SCH ×2 (07:00→19:25)
[2016-07-28] MEDS: NEB-BROVANA 15 MCG/2 ML INH SCH ×2 (07:00→19:25)
[2016-07-28] MEDS: METOPROLOL XL 25 MG TAB PO SCH (09:09)
[2016-07-28] MEDS: PAROXETINE HCL 10 MG TAB PO SCH (09:09)
[2016-07-28] MEDS: Finasteride 5 MG TAB PO SCH (09:09)
[2016-07-28] MEDS: VANCOMYCIN SUSP 250 MG/5 ML UDC PO SCH ×4 (09:09→22:11)
[2016-07-28] MEDS: ISOSORBIDE MONO 30 MG TAB PO SCH (09:09)
[2016-07-28] MEDS: SACCHA BOULARDII 250MG CAP PO SCH ×2 (09:09→22:10)
[2016-07-28] MEDS: ASPIRIN EC 81 MG TAB PO SCH (09:09)
[2016-07-28] MEDS: [UNRECOGNIZED DRUG - OTHER] PO SCH (09:09)
[2016-07-28] MEDS: TAMSULOSIN 0.4 MG CAP PO SCH (09:09)
[2016-07-28] MEDS: LEVOFLOXACIN 750 MG/150 ML 150 ML IV SCH (09:10)
[2016-07-28] MEDS: CIPROFLOXACIN HCL EYE EACH SCH ×3 (09:11→22:10)
[2016-07-28] MEDS: SALINE FLUSH 10 ML FLUSH SCH ×2 (09:12→22:11)
[2016-07-28] MEDS: *HOME MEDS IN MED CART XX SCH ×2 (09:12→20:00)
[2016-07-28] MEDS: ROFLUMILAST 500 MCG TAB PO SCH (22:09)
[2016-07-28] MEDS: FAMOTIDINE 20 MG TAB PO SCH (22:09)
[2016-07-28] MEDS: BIMATOPROST 0.01% OP SOLN 2.5 ML EYE EACH SCH (22:10)
[2016-07-29 03:36] VITALS: BP_SYST 110; RESP 20; TEMP 97.1
[2016-07-29] MEDS: SODIUM CHLORIDE 0.9% FLUSH BAG 500 ML IV SCH (05:32)
[2016-07-29] MEDS: NEB-BROVANA 15 MCG/2 ML INH SCH (07:30)
[2016-07-29] MEDS: NEB-BUDESONIDE 0.5 MG INH SCH (07:30)
[2016-07-29] MEDS: DUONEB INH SCH ×3 (07:30→14:38)
[2016-07-29 07:42] VITALS: BP_SYST 150; RESP 22; TEMP 96.7
[2016-07-29] MEDS: *HOME MEDS IN MED CART XX SCH (09:11)
[2016-07-29] MEDS: SALINE FLUSH 10 ML FLUSH SCH (09:17)
[2016-07-29] MEDS: LEVOFLOXACIN 750 MG/150 ML 150 ML IV SCH (09:18)
[2016-07-29] MEDS: VANCOMYCIN SUSP 250 MG/5 ML UDC PO SCH ×3 (09:20→17:40)
[2016-07-29] MEDS: TAMSULOSIN 0.4 MG CAP PO SCH (09:21)
[2016-07-29] MEDS: [UNRECOGNIZED DRUG - OTHER] PO SCH (09:21)
[2016-07-29] MEDS: ISOSORBIDE MONO 30 MG TAB PO SCH (09:21)
[2016-07-29] MEDS: METOPROLOL XL 25 MG TAB PO SCH (09:21)
[2016-07-29] MEDS: ASPIRIN EC 81 MG TAB PO SCH (09:21)
[2016-07-29] MEDS: PAROXETINE HCL 10 MG TAB PO SCH (09:21)
[2016-07-29] MEDS: SACCHA BOULARDII 250MG CAP PO SCH (09:21)
[2016-07-29] MEDS: Finasteride 5 MG TAB PO SCH (09:21)
[2016-07-29] MEDS: CIPROFLOXACIN HCL EYE EACH SCH ×2 (09:29→16:19)
[2016-07-29 11:26] VITALS: BP_SYST 116; RESP 20; TEMP 97
[2016-07-29 16:28] VITALS: BP_SYST 116; RESP 20; TEMP 97
== END 2016-07-29 18:31 | disposition home health service (06) | DRG 371 ==
LOC: ER 18:53 → EMR 18:54 → UNDOADMOB 07-26 02:51 → 3NT 07-26 04:43 → OBSVTOIN 07-27 11:05 → ENPENDDIS 07-27 11:05 → DELPENDDIS 07-27 11:05
PROVIDERS: ADMIT Internal Medicine; ATTEND Internal Medicine
DX: A04.7 Enterocolitis due to Clostridium difficile (principal); J18.9 Pneumonia, unspecified organism; J96.10 Chronic respiratory failure, unspecified whether with hypoxia or hypercapnia; J44.0 Chronic obstructive pulmonary disease with (acute) lower respiratory infection; J44.1 Chronic obstructive pulmonary disease with (acute) exacerbation; E78.00 Pure hypercholesterolemia, unspecified; Z85.46 Personal history of malignant neoplasm of prostate; Z79.82 Long term (current) use of aspirin; I12.9 Hypertensive chronic kidney disease with stage 1 through stage 4 chronic kidney disease, or unspecified chronic kidney disease; N18.9 Chronic kidney disease, unspecified
CPT/HCPCS: 36415; 71010; 80053; 82553; 83880; 84145; 84484; 85025; 85610; 85730; 87040; 87045; 87046; 87493; 93005; 94640; 94799; 96365; 96375; 99219; 99232